=== PATIENT | female | born 1975 | race Caucasian/White ===

== ENCOUNTER 2019-10-24 10:37 | Emergency (ER) | payer BC ==
[~2019-10-24] VITALS: Ht 170.2 cm; Wt 68.0 kg
[~2019-10-24 10:37] MED LIST: ALBU-136 IH; PRED10TA6 PO
[2019-10-24 10:46] VITALS: BP 123/85
--- NOTE | 2019-10-24 10:49 | NUR ---
URINE CUP HANDED TO PT FOR SAMPLE
--- NOTE | 2019-10-24 10:50 | NUR ---
Pt ambulated to restroom for collection of urine
--- NOTE | 2019-10-24 10:57 | NUR ---
44 y/o female from home c/o dizziness, nausea, headache, and fatigue s/p hitting head on wall 3 days ago. Pt denies LOC. states she "slept all day" the day after incident. Denies blurred vision. Denies vomiting. RR even and unlabored. PERRL. States slight photosensitivity. GCS 15 upon arrival. medhx: denies
--- NOTE | 2019-10-24 11:06 | NUR ---
Dr Parker at bedside examining pt
[2019-10-24] MEDS ORDERED: MECLIZINE 25 MG TAB PO ONE (11:10)
--- NOTE | 2019-10-24 12:05 | NUR ---
Denies dizziness at this time. States she is feeling better than upon arrival
[2019-10-24 12:55] VITALS: BP 120/81
--- NOTE | 2019-10-24 12:55 | NUR ---
Patient discharged with v/s stable. Written and verbal after care instructions given and explained. Patient alert, oriented and verbalized understanding of instructions. Ambulatory with steady gait. All questions addressed prior to discharge. ID band removed. Patient advised to follow up with PMD. Rx of Ativan and Meclizine given. Patient educated on indication of medication including possible reaction and side effects. Opportunity to ask questions provided and answered.
== END 2019-10-24 12:55 | disposition home or self-care (01) ==
LOC: MED 10:37
DX: S09.90XA Unspecified injury of head, initial encounter (principal); W22.01XA Walked into wall, initial encounter; Y93.89 Activity, other specified; Y92.89 Other specified places as the place of occurrence of the external cause; Y99.8 Other external cause status
CPT/HCPCS: 70450; 81002; 81025; 99284; J8597